=== PATIENT | male | born 1985 | race Two or more races ===

== ENCOUNTER 2017-09-04 17:48 | Emergency (ER) | payer SELFPAY ==
[2017-09-04 20:52] LABS: BILIRUBIN,URINE NEGATIVE (NEG); CLARITY,URINE CLEAR; COLOR,URINE YELLOW; GLUCOSE,URINE NEGATIVE (NEG); NITRITE,URINE NEGATIVE (NEG); PH,URINE 5.5; PROTEIN,URINE 100 mg/dL (NEG-TRACE)
[2017-09-04 20:55] LABS: INFLUENZA A PATIENT NEGATIVE (NEGATIVE); INFLUENZA B PATIENT NEGATIVE (NEGATIVE); OBC FLU VALID
[2017-09-04] MEDS: IV NORMAL SALINE 1000ML BAG 1,000 ML IV (21:00)
[2017-09-04 21:08] LABS: BACTERIA,URINE FEW /HPF (0-FEW); SQUAMOUS EPITHELIAL CELL,UR FEW /LPF; WBC,URINE 0 /HPF (0-4)
[2017-09-04] MEDS: PENICILLIN G BENZATHINE LA 1,200,000 UNIT/2 ML DISP.SYRIN. IM (21:48)
[2017-09-05 11:08] LABS: NEGATIVE OBC STREP NEG; POSITIVE OBC STREP POS
== END 2017-09-04 22:00 | disposition home or self-care (01) ==
LOC: ER 17:48
DX: J02.0 Streptococcal pharyngitis (principal); G40.909 Epilepsy, unspecified, not intractable, without status epilepticus; Z88.8 Allergy status to other drugs, medicaments and biological substances; Z87.01 Personal history of pneumonia (recurrent); Z79.899 Other long term (current) drug therapy
CPT/HCPCS: 71045; 81001; 87804; 87804-59; 87880; 96372; 99285-25; J0561

== ENCOUNTER 2017-09-20 16:03 | Emergency (ER) | payer SELFPAY | END 2017-09-20 16:38 | disposition home or self-care (01) | LOC: ER 16:03 | DX: Z76.0 Encounter for issue of repeat prescription (principal); Z88.8 Allergy status to other drugs, medicaments and biological substances; Z87.01 Personal history of pneumonia (recurrent) | CPT/HCPCS: 99283 ==

== ENCOUNTER 2017-10-06 18:37 | Inpatient (IN) | payer SELFPAY ==
[2017-10-06] MEDS: IV NORMAL SALINE 1000ML BAG 1,000 ML IV ×2 (20:40→22:00)
[2017-10-06 21:11] LABS: INFLUENZA A PATIENT NEGATIVE (NEGATIVE); INFLUENZA B PATIENT NEGATIVE (NEGATIVE); OBC FLU VALID
[2017-10-06 21:27] LABS: ADD MAN DIFF? NO
[2017-10-06 21:31] LABS: BASO % 0 % (0-3); EOS % 1 % (0-3); HEMATOCRIT 31.3 % (39.0-53.0); HEMOGLOBIN 10.3 g/dL (13.0-17.5); LYMPH # 1.3 x10^3/uL (1.0-4.8); LYMPH % 29 % (24-48); MEAN CORPUSCULAR HEMOGLOBIN 25 pg (25-35); MEAN CORPUSCULAR HGB CONC 33 g/dL (31-37); MEAN CORPUSCULAR VOLUME 76 fL (79-100); MONO # 0.5 x10^3/uL (0.0-1.1); MONO % 11 % (0-9); NEUT # 2.7 x10^3uL (1.8-7.7); NEUT % 59 % (31-73); PLATELET COUNT 55 x10^3/uL (140-400); RED BLOOD COUNT 4.14 x10^6/uL (4.30-5.70); RED CELL DISTRIBUTION WIDTH 15.1 % (11.5-14.5); WHITE BLOOD COUNT 4.5 x10^3/uL (4.0-11.0)
[2017-10-06 21:45] LABS: ALBUMIN 3.1 g/dL (3.4-5.0); ALBUMIN/GLOBULIN RATIO 0.9 (1.0-1.7); ALK PHOS 42 U/L (46-116); ALT (SGPT) 7 U/L (16-63); ANION GAP -6 (6-14); AST (SGOT) 10 U/L (15-37); BLOOD UREA NITROGEN 18 mg/dL (8-26); BUN/CREATININE RATIO 14 (6-20); CALCIUM 8.1 mg/dL (8.5-10.1); CARBON DIOXIDE 21 mmol/L (21-32); CHLORIDE 104 mmol/L (98-107); CREATININE 1.3 mg/dL (0.7-1.3); GLUCOSE 76 mg/dL (70-99); POTASSIUM 4.1 mmol/L (3.5-5.1); TOTAL BILIRUBIN 0.4 mg/dL (0.2-1.0); TOTAL PROTEIN 6.4 g/dL (6.4-8.2)
[2017-10-06 21:50] LABS: SODIUM 119 mmol/L (136-145)
[2017-10-06 21:58] LABS: ANISOCYTOSIS SLIGHT; OVALOCYTES FEW; PLT ESTIMATE DECREASED (ADEQUATE)
[2017-10-06] MEDS ORDERED: ACETAMINOPHEN 325 MG TABLET. PO (22:15)
[2017-10-06 22:17] LABS: MAGNESIUM 1.7 mg/dL (1.8-2.4)
[2017-10-06 22:57] LABS: BILIRUBIN,URINE NEGATIVE (NEG); CLARITY,URINE CLEAR; COLOR,URINE YELLOW; GLUCOSE,URINE NEGATIVE (NEG); NITRITE,URINE NEGATIVE (NEG); PROTEIN,URINE 30 mg/dL (NEG-TRACE)
[2017-10-06 23:09] LABS: BACTERIA,URINE 0 /HPF (0-FEW); HYALINE CASTS, URINE FEW /HPF; SQUAMOUS EPITHELIAL CELL,UR OCC /LPF
[2017-10-07] MEDS: IV NORMAL SALINE 1000ML BAG 1,000 ML IV ×4 (01:00→23:45)
[2017-10-07] MEDS: TEMAZEPAM 15 MG CAPSULE PO (01:13)
[2017-10-07] MEDS: levETIRAcetam 500 MG TABLET PO ×2 (01:13→09:00)
[2017-10-07] MEDS: LORazepam 1 MG TABLET PO ×3 (01:14→14:00)
[2017-10-07 06:48] LABS: ALBUMIN 2.8 g/dL (3.4-5.0); ALK PHOS 34 U/L (46-116); ALT (SGPT) 8 U/L (16-63); ANION GAP 13 (6-14); AST (SGOT) 14 U/L (15-37); BLOOD UREA NITROGEN 13 mg/dL (8-26); BUN/CREATININE RATIO 13 (6-20); CALCIUM 7.6 mg/dL (8.5-10.1); CARBON DIOXIDE 21 mmol/L (21-32); CHLORIDE 109 mmol/L (98-107); GFR 86.6; GLUCOSE 115 mg/dL (70-99); POTASSIUM 3.7 mmol/L (3.5-5.1); SODIUM 143 mmol/L (136-145); TOTAL BILIRUBIN 0.2 mg/dL (0.2-1.0); TOTAL PROTEIN 5.6 g/dL (6.4-8.2)
[2017-10-07 10:43] LABS: ADD MAN DIFF? NO
[2017-10-07 10:51] LABS: BASO % 1 % (0-3); EOS % 1 % (0-3); HEMOGLOBIN 11.2 g/dL (13.0-17.5); LYMPH # 1.4 x10^3/uL (1.0-4.8); LYMPH % 34 % (24-48); MEAN CORPUSCULAR HEMOGLOBIN 24 pg (25-35); MEAN CORPUSCULAR HGB CONC 31 g/dL (31-37); MEAN CORPUSCULAR VOLUME 78 fL (79-100); MONO # 0.5 x10^3/uL (0.0-1.1); MONO % 12 % (0-9); NEUT # 2.2 x10^3uL (1.8-7.7); NEUT % 52 % (31-73); PLATELET COUNT 50 x10^3/uL (140-400); RED BLOOD COUNT 4.61 x10^6/uL (4.30-5.70); RED CELL DISTRIBUTION WIDTH 15.8 % (11.5-14.5); WHITE BLOOD COUNT 4.2 x10^3/uL (4.0-11.0)
[2017-10-07] MEDS: CLINDAMYCIN 600MG PREMIX 50 ML IV ×3 (14:00→23:43)
[2017-10-07] MEDS ORDERED: LIDOCAINE WITH 8.4% SOD BICARB 3 ML DISP.SYRIN. (14:46)
[2017-10-07] MEDS: LIDOCAINE WITH 8.4% SOD BICARB 3 ML DISP.SYRIN. INJ (15:00)
[2017-10-07] MEDS: ONDANSETRON PF 4 MG/2 ML VIAL. IV (19:26)
[2017-10-07] MEDS: IV NORMAL SALINE 500ML BAG 500 ML IV (20:00)
[2017-10-07] MEDS: ACETAMINOPHEN 325 MG SUPP.RECT. PR (20:12)
[2017-10-07] MEDS: CETIRIZINE HCL 10 MG TABLET. PO (23:56)
[2017-10-08] MEDS: ALBUTEROL SULFATE 2.5 MG/3 ML NEBU. NEB (00:50)
[2017-10-08] MEDS: IV 1/2 NORMAL SALINE 1,000 ML IV (01:45)
[2017-10-08] MEDS: ACETAMINOPHEN 325 MG SUPP.RECT. PR ×4 (04:42→23:33)
[2017-10-08 05:04] LABS: ADD MAN DIFF? NO
[2017-10-08 05:38] LABS: BASO % 0 % (0-3); EOS % 0 % (0-3); HEMATOCRIT 28.9 % (39.0-53.0); HEMOGLOBIN 9.6 g/dL (13.0-17.5); LYMPH # 0.6 x10^3/uL (1.0-4.8); LYMPH % 10 % (24-48); MEAN CORPUSCULAR HEMOGLOBIN 25 pg (25-35); MEAN CORPUSCULAR HGB CONC 33 g/dL (31-37); MEAN CORPUSCULAR VOLUME 76 fL (79-100); MONO # 0.6 x10^3/uL (0.0-1.1); MONO % 9 % (0-9); NEUT # 5.3 x10^3uL (1.8-7.7); NEUT % 82 % (31-73); RED CELL DISTRIBUTION WIDTH 15.7 % (11.5-14.5); WHITE BLOOD COUNT 6.5 x10^3/uL (4.0-11.0)
[2017-10-08 05:46] LABS: PLATELET COUNT 45 x10^3/uL (140-400)
[2017-10-08 06:00] LABS: ANION GAP 14 (6-14); BLOOD UREA NITROGEN 10 mg/dL (8-26); CALCIUM 7.2 mg/dL (8.5-10.1); CARBON DIOXIDE 19 mmol/L (21-32); CHLORIDE 106 mmol/L (98-107); CREATININE 1.3 mg/dL (0.7-1.3); GLUCOSE 118 mg/dL (70-99); POTASSIUM 3.7 mmol/L (3.5-5.1); SODIUM 139 mmol/L (136-145)
[2017-10-08] MEDS: CLINDAMYCIN 600MG PREMIX 50 ML IV ×3 (06:11→21:12)
[2017-10-08] MEDS: CETIRIZINE HCL 10 MG TABLET. PO (08:14)
[2017-10-08] MEDS: MORPHINE SULFATE 2 MG/ML DISP.SYRIN. IV ×4 (10:32→23:43)
[2017-10-08] MEDS: SCOPOLAMINE 1.5MG PATCH. TD (10:45)
[2017-10-08] MEDS: ATROPINE 1% OPHTH SOLUTION 5ML BOTTLE. SL (11:26)
[2017-10-08 13:19] LABS: URINE OSMOLALITY 471 mOsmol/kg (.)
[2017-10-08] MEDS: SUCRALFATE 1 GM TABLET. PO (21:00)
[2017-10-09 00:33] LABS: LACTIC ACID 1.5 mmol/L (0.4-2.0)
[2017-10-09] MEDS: ACETAMINOPHEN 325 MG SUPP.RECT. PR ×3 (05:11→20:49)
[2017-10-09] MEDS: CLINDAMYCIN 600MG PREMIX 50 ML IV (06:20)
[2017-10-09] MEDS ORDERED: PANTOPRAZOLE 40 MG TABLET.DR. PO (07:30)
[2017-10-09] MEDS: SUCRALFATE 1 GM TABLET. PO ×2 (10:32→20:42)
[2017-10-09] MEDS: CETIRIZINE HCL 10 MG TABLET. PO (10:33)
[2017-10-09] MEDS: PANTOPRAZOLE IV PUSH 40 MG VIAL. IVP (10:42)
[2017-10-09] MEDS ORDERED: CONTRAST GIVEN MC (12:15)
[2017-10-09] MEDS: IOHEXOL 300 MG/ML 100ML VIAL. IV (12:15)
[2017-10-09] MEDS: IOHEXOL 240 MG/ML 50ML VIAL. PO (12:15)
[2017-10-09] MEDS: PIPERACILLIN/TAZOBACTAM 3.375 GM in IV NORMAL SALINE 50ML 50 ML IV ×3 (12:39→22:47)
[2017-10-09] MEDS: VANCOMYCIN 1 GM in IV DEXTROSE 5% 250 ML IV (14:01)
[2017-10-09] MEDS: VANCOMYCIN PER PHARMACY MC (14:57)
[2017-10-09] MEDS: MORPHINE SULFATE 2 MG/ML DISP.SYRIN. IV ×2 (16:15→22:46)
[2017-10-09] MEDS: IV NORMAL SALINE 1000ML BAG 1,000 ML IV (17:43)
[2017-10-09 18:17] LABS: ADD MAN DIFF? NO
[2017-10-09 18:18] LABS: BASO % 0 % (0-3); EOS % 0 % (0-3); HEMATOCRIT 27.7 % (39.0-53.0); LYMPH # 0.4 x10^3/uL (1.0-4.8); LYMPH % 19 % (24-48); MEAN CORPUSCULAR HEMOGLOBIN 25 pg (25-35); MEAN CORPUSCULAR HGB CONC 33 g/dL (31-37); MEAN CORPUSCULAR VOLUME 76 fL (79-100); MONO # 0.1 x10^3/uL (0.0-1.1); MONO % 5 % (0-9); NEUT # 1.7 x10^3uL (1.8-7.7); NEUT % 76 % (31-73); PLATELET COUNT 39 x10^3/uL (140-400); RED BLOOD COUNT 3.66 x10^6/uL (4.30-5.70); RED CELL DISTRIBUTION WIDTH 15.5 % (11.5-14.5); WHITE BLOOD COUNT 2.3 x10^3/uL (4.0-11.0)
[2017-10-09 18:38] LABS: ANION GAP 10 (6-14); BLOOD UREA NITROGEN 15 mg/dL (8-26); CALCIUM 7.1 mg/dL (8.5-10.1); CARBON DIOXIDE 22 mmol/L (21-32); CHLORIDE 109 mmol/L (98-107); CREATININE 1.7 mg/dL (0.7-1.3); GFR 46.9; GLUCOSE 110 mg/dL (70-99); POTASSIUM 3.9 mmol/L (3.5-5.1); SODIUM 141 mmol/L (136-145)
[2017-10-10] MEDS: IV NORMAL SALINE 1000ML BAG 1,000 ML IV ×2 (03:54→12:13)
[2017-10-10] MEDS: ALBUTEROL SULFATE 2.5 MG/3 ML NEBU. NEB ×2 (04:24→12:30)
[2017-10-10] MEDS: PIPERACILLIN/TAZOBACTAM 3.375 GM in IV NORMAL SALINE 50ML 50 ML IV ×3 (05:49→17:08)
[2017-10-10] MEDS: MORPHINE SULFATE 2 MG/ML DISP.SYRIN. IV ×5 (05:51→21:34)
[2017-10-10] MEDS: CETIRIZINE HCL 10 MG TABLET. PO (08:43)
[2017-10-10] MEDS: SUCRALFATE 1 GM TABLET. PO ×2 (08:43→21:31)
[2017-10-10] MEDS: PANTOPRAZOLE IV PUSH 40 MG VIAL. IVP (08:45)
[2017-10-10] MEDS: ONDANSETRON PF 4 MG/2 ML VIAL. IV (08:48)
[2017-10-10 09:01] LABS: ADD MAN DIFF? NO
[2017-10-10 09:09] LABS: BASO % 0 % (0-3); EOS % 0 % (0-3); HEMATOCRIT 27.4 % (39.0-53.0); HEMOGLOBIN 8.8 g/dL (13.0-17.5); LYMPH # 0.4 x10^3/uL (1.0-4.8); LYMPH % 21 % (24-48); MEAN CORPUSCULAR HEMOGLOBIN 25 pg (25-35); MEAN CORPUSCULAR HGB CONC 32 g/dL (31-37); MEAN CORPUSCULAR VOLUME 76 fL (79-100); MONO # 0.1 x10^3/uL (0.0-1.1); MONO % 4 % (0-9); NEUT # 1.6 x10^3uL (1.8-7.7); NEUT % 75 % (31-73); RED BLOOD COUNT 3.58 x10^6/uL (4.30-5.70); RED CELL DISTRIBUTION WIDTH 15.9 % (11.5-14.5); WHITE BLOOD COUNT 2.1 x10^3/uL (4.0-11.0)
[2017-10-10 09:15] LABS: ANION GAP 15 (6-14); BLOOD UREA NITROGEN 15 mg/dL (8-26); CALCIUM 7.3 mg/dL (8.5-10.1); CARBON DIOXIDE 19 mmol/L (21-32); CHLORIDE 113 mmol/L (98-107); CREATININE 1.6 mg/dL (0.7-1.3); GFR 50.3; GLUCOSE 100 mg/dL (70-99); POTASSIUM 3.5 mmol/L (3.5-5.1); SODIUM 147 mmol/L (136-145)
[2017-10-10 09:42] LABS: PLATELET COUNT 37 x10^3/uL (140-400)
[2017-10-10] MEDS: AMINO AC 3%/ELECTROLYTE/GLYCER 1,000 ML IV (12:10)
[2017-10-10] MEDS: VANCOMYCIN PER PHARMACY MC (13:53)
[2017-10-10] MEDS: VANCOMYCIN 750 MG in IV 1/2 NORMAL SALINE 250 ML IV (13:58)
[2017-10-11] MEDS: PIPERACILLIN/TAZOBACTAM 3.375 GM in IV NORMAL SALINE 50ML 50 ML IV ×4 (00:26→17:05)
[2017-10-11] MEDS: AMINO AC 3%/ELECTROLYTE/GLYCER 1,000 ML IV ×2 (00:27→11:37)
[2017-10-11] MEDS: ACETAMINOPHEN 325 MG SUPP.RECT. PR ×3 (00:34→13:53)
[2017-10-11 05:49] LABS: BASO % 1 % (0-3); EOS % 0 % (0-3); HEMATOCRIT 27.9 % (39.0-53.0); LYMPH # 0.6 x10^3/uL (1.0-4.8); LYMPH % 29 % (24-48); MEAN CORPUSCULAR HEMOGLOBIN 24 pg (25-35); MEAN CORPUSCULAR HGB CONC 32 g/dL (31-37); MEAN CORPUSCULAR VOLUME 76 fL (79-100); MONO # 0.1 x10^3/uL (0.0-1.1); MONO % 5 % (0-9); NEUT # 1.5 x10^3uL (1.8-7.7); NEUT % 66 % (31-73); PLATELET COUNT 56 x10^3/uL (140-400); RED BLOOD COUNT 3.68 x10^6/uL (4.30-5.70); RED CELL DISTRIBUTION WIDTH 16.2 % (11.5-14.5); WHITE BLOOD COUNT 2.2 x10^3/uL (4.0-11.0)
[2017-10-11 05:52] LABS: ADD MAN DIFF? YES
[2017-10-11 05:58] LABS: ANION GAP 10 (6-14); BLOOD UREA NITROGEN 17 mg/dL (8-26); CALCIUM 7.8 mg/dL (8.5-10.1); CARBON DIOXIDE 21 mmol/L (21-32); CHLORIDE 114 mmol/L (98-107); CREATININE 1.6 mg/dL (0.7-1.3); GFR 50.3; GLUCOSE 111 mg/dL (70-99); POTASSIUM 4.2 mmol/L (3.5-5.1); SODIUM 145 mmol/L (136-145)
[2017-10-11] MEDS: SUCRALFATE 1 GM TABLET. PO ×2 (06:57→20:32)
[2017-10-11] MEDS: CETIRIZINE HCL 10 MG TABLET. PO (06:57)
[2017-10-11] MEDS: SCOPOLAMINE 1.5MG PATCH. TD (07:07)
[2017-10-11] MEDS: PANTOPRAZOLE IV PUSH 40 MG VIAL. IVP (07:07)
[2017-10-11 10:15] LABS: % BANDS 42 % (0-9); % LYMPHS 27 % (24-48); % MONOS 3 % (0-10); % SEGS 28 % (35-66); PLT ESTIMATE DECREASED (ADEQUATE)
[2017-10-11 10:48] LABS: ANISOCYTOSIS SLIGHT; MICROCYTOSIS SLIGHT
[2017-10-11 10:49] LABS: HYPOCHROMIA SLIGHT; OVALOCYTES FEW; SCHISTOCYTES OCC; TEAR DROP CELLS FEW
[2017-10-11] MEDS: ALBUTEROL SULFATE 2.5 MG/3 ML NEBU. NEB (12:03)
[2017-10-11 12:56] LABS: BASE EXCESS ABG -5 mmol/L (-3-3); HCO3 ABG 19 mmol/L (21-28); PCO2 ABG 33 mmHg (35-46); PH ABG 7.39 (7.35-7.45); PO2 ABG 51 mmHg (85-108); SAT O2 ABG 81 % (92-99)
[2017-10-11 12:59] LABS: FIO2 ABG 21
[2017-10-11 15:27] LABS: VANC TR 8.3 mcg/mL (10.0-20.0)
[2017-10-11] MEDS: MORPHINE SULFATE 2 MG/ML DISP.SYRIN. IV ×3 (15:32→21:35)
[2017-10-11] MEDS: VANCOMYCIN 750 MG in IV 1/2 NORMAL SALINE 250 ML IV (15:33)
[2017-10-11] MEDS: VANCOMYCIN PER PHARMACY MC (15:36)
[2017-10-11] MEDS: IPRATRPIUM/ALBUTEROL 0.5/2.5MG 3 ML NEBU. NEB ×2 (16:09→20:13)
[2017-10-11 20:09] LABS: C DIFF BY PCR Negative (Negative)
[2017-10-12] MEDS: PIPERACILLIN/TAZOBACTAM 3.375 GM in IV NORMAL SALINE 50ML 50 ML IV ×2 (00:11→05:41)
[2017-10-12] MEDS: AMINO AC 3%/ELECTROLYTE/GLYCER 1,000 ML IV ×2 (01:22→15:48)
[2017-10-12] MEDS: MORPHINE SULFATE 2 MG/ML DISP.SYRIN. IV ×3 (01:52→15:26)
[2017-10-12 06:00] LABS: ADD MAN DIFF? NO
[2017-10-12 06:06] LABS: BASO % 0 % (0-3); EOS % 0 % (0-3); HEMATOCRIT 25.5 % (39.0-53.0); HEMOGLOBIN 8.3 g/dL (13.0-17.5); LYMPH # 0.5 x10^3/uL (1.0-4.8); LYMPH % 35 % (24-48); MEAN CORPUSCULAR HEMOGLOBIN 25 pg (25-35); MEAN CORPUSCULAR HGB CONC 33 g/dL (31-37); MEAN CORPUSCULAR VOLUME 75 fL (79-100); MONO # 0.1 x10^3/uL (0.0-1.1); MONO % 7 % (0-9); NEUT # 0.9 x10^3uL (1.8-7.7); NEUT % 58 % (31-73); PLATELET COUNT 48 x10^3/uL (140-400); RED BLOOD COUNT 3.39 x10^6/uL (4.30-5.70); RED CELL DISTRIBUTION WIDTH 15.9 % (11.5-14.5)
[2017-10-12 06:13] LABS: WHITE BLOOD COUNT 1.5 x10^3/uL (4.0-11.0)
[2017-10-12] MEDS: VANCOMYCIN 500 MG in IV NORMAL SALINE 100ML 100 ML IV ×2 (06:19→17:58)
[2017-10-12 06:22] LABS: ANION GAP 5 (6-14); BLOOD UREA NITROGEN 21 mg/dL (8-26); CALCIUM 7.7 mg/dL (8.5-10.1); CARBON DIOXIDE 25 mmol/L (21-32); CHLORIDE 108 mmol/L (98-107); CREATININE 1.5 mg/dL (0.7-1.3); GFR 54.2; GLUCOSE 119 mg/dL (70-99); POTASSIUM 4.2 mmol/L (3.5-5.1); SODIUM 138 mmol/L (136-145)
[2017-10-12] MEDS: VANCOMYCIN PER PHARMACY MC (08:55)
[2017-10-12] MEDS: CEFEPIME HCL 1 GM in IV NORMAL SALINE 50ML 50 ML IV ×3 (09:01→21:31)
[2017-10-12] MEDS: IPRATRPIUM/ALBUTEROL 0.5/2.5MG 3 ML NEBU. NEB ×4 (09:28→20:47)
[2017-10-12] MEDS: OSELTAMIVIR 30 MG CAPSULE PO ×2 (09:29→20:39)
[2017-10-12] MEDS: PANTOPRAZOLE IV PUSH 40 MG VIAL. IVP (09:29)
[2017-10-12] MEDS: CETIRIZINE HCL 10 MG TABLET. PO (09:29)
[2017-10-12] MEDS: SUCRALFATE 1 GM TABLET. PO ×2 (09:29→20:39)
[2017-10-12 14:18] LABS: RETIC COUNT 0.2 % (0.5-2.5)
[2017-10-12 14:58] LABS: THYROID STIM HORMONE (TSH) 0.765 uIU/mL (0.358-3.74)
[2017-10-12] MEDS: TBO-FILGRASTIM 300 MCG/0.5 ML SYRINGE. SQ (15:49)
[2017-10-12] MEDS: MORPHINE SULFATE 4 MG/ML DISP.SYRIN. IV (19:12)
[2017-10-13] MEDS: MORPHINE SULFATE 4 MG/ML DISP.SYRIN. IV ×2 (00:05→02:39)
[2017-10-13] MEDS: AMINO AC 3%/ELECTROLYTE/GLYCER 1,000 ML IV (04:31)
[2017-10-13] MEDS: CEFEPIME HCL 1 GM in IV NORMAL SALINE 50ML 50 ML IV ×3 (05:27→21:49)
[2017-10-13] MEDS: VANCOMYCIN 500 MG in IV NORMAL SALINE 100ML 100 ML IV ×2 (06:00→17:40)
[2017-10-13 06:33] LABS: ANION GAP 10 (6-14); BLOOD UREA NITROGEN 24 mg/dL (8-26); CALCIUM 8.4 mg/dL (8.5-10.1); CARBON DIOXIDE 21 mmol/L (21-32); CHLORIDE 104 mmol/L (98-107); CREATININE 1.1 mg/dL (0.7-1.3); GFR 77.6; GLUCOSE 131 mg/dL (70-99); POTASSIUM 4.3 mmol/L (3.5-5.1); SODIUM 135 mmol/L (136-145)
[2017-10-13 06:39] LABS: INFLUENZA A PATIENT NEGATIVE (NEGATIVE); INFLUENZA B PATIENT NEGATIVE (NEGATIVE); OBC FLU VALID
[2017-10-13 06:41] LABS: BASO % 0 % (0-3); EOS % 0 % (0-3); HEMATOCRIT 27.4 % (39.0-53.0); HEMOGLOBIN 8.9 g/dL (13.0-17.5); LYMPH # 0.8 x10^3/uL (1.0-4.8); LYMPH % 7 % (24-48); MEAN CORPUSCULAR HEMOGLOBIN 25 pg (25-35); MEAN CORPUSCULAR HGB CONC 32 g/dL (31-37); MEAN CORPUSCULAR VOLUME 76 fL (79-100); MONO # 0.3 x10^3/uL (0.0-1.1); MONO % 3 % (0-9); NEUT # 10.8 x10^3uL (1.8-7.7); NEUT % 90 % (31-73); PLATELET COUNT 47 x10^3/uL (140-400); RED BLOOD COUNT 3.63 x10^6/uL (4.30-5.70); RED CELL DISTRIBUTION WIDTH 16.3 % (11.5-14.5)
[2017-10-13 06:44] LABS: ADD MAN DIFF? YES
[2017-10-13] MEDS: CETIRIZINE HCL 10 MG TABLET. PO (07:48)
[2017-10-13] MEDS: SUCRALFATE 1 GM TABLET. PO ×2 (07:48→21:00)
[2017-10-13] MEDS: PANTOPRAZOLE IV PUSH 40 MG VIAL. IVP (07:48)
[2017-10-13] MEDS: OSELTAMIVIR 30 MG CAPSULE PO ×2 (07:48→21:00)
[2017-10-13] MEDS: IPRATRPIUM/ALBUTEROL 0.5/2.5MG 3 ML NEBU. NEB ×4 (08:52→19:22)
[2017-10-13] MEDS: VANCOMYCIN PER PHARMACY MC (09:44)
[2017-10-13 12:15] LABS: HCV ANTIBODY <0.1 s/co ratio (0.0-0.9); HEP A IGM ABDY Negative (Negative); HEP B SURFACE AG Negative (Negative)
[2017-10-13 12:27] LABS: % BANDS 10 % (0-9); % LYMPHS 8 % (24-48); % MONOS 3 % (0-10); % SEGS 79 % (35-66)
[2017-10-13 12:28] LABS: ANISOCYTOSIS SLIGHT; OVALOCYTES PRESENT; PLT ESTIMATE DECREASED (ADEQUATE); POIKILOCYTOSIS SLIGHT
[2017-10-13] MEDS: TPN PER PHARMACY MC (13:07)
[2017-10-13] MEDS: TOTAL PARENTERAL NUTRITION IV (21:48)
[2017-10-13] MEDS: DEXTROSE 70% IV (21:48)
[2017-10-13] MEDS: [UNRECOGNIZED DRUG - OTHER] IV (21:48)
[2017-10-13] MEDS: AMINO ACIDS IV (21:48)
[2017-10-13 23:11] LABS: MRSA BY PCR Negative (Negative)
[2017-10-14] MEDS: CEFEPIME HCL 1 GM in IV NORMAL SALINE 50ML 50 ML IV ×3 (05:35→23:19)
[2017-10-14] MEDS: VANCOMYCIN 500 MG in IV NORMAL SALINE 100ML 100 ML IV (05:36)
[2017-10-14 05:43] LABS: ADD MAN DIFF? NO
[2017-10-14 05:47] LABS: BASO % 0 % (0-3); EOS % 0 % (0-3); HEMATOCRIT 30.8 % (39.0-53.0); HEMOGLOBIN 9.9 g/dL (13.0-17.5); LYMPH # 0.7 x10^3/uL (1.0-4.8); LYMPH % 4 % (24-48); MEAN CORPUSCULAR HEMOGLOBIN 24 pg (25-35); MEAN CORPUSCULAR HGB CONC 32 g/dL (31-37); MEAN CORPUSCULAR VOLUME 75 fL (79-100); MONO # 0.5 x10^3/uL (0.0-1.1); MONO % 3 % (0-9); NEUT # 16.9 x10^3uL (1.8-7.7); NEUT % 93 % (31-73); PLATELET COUNT 76 x10^3/uL (140-400); RED BLOOD COUNT 4.14 x10^6/uL (4.30-5.70); RED CELL DISTRIBUTION WIDTH 16.5 % (11.5-14.5)
[2017-10-14 06:14] LABS: ALBUMIN 2.4 g/dL (3.4-5.0); ALBUMIN/GLOBULIN RATIO 0.5 (1.0-1.7); ALK PHOS 103 U/L (46-116); ALT (SGPT) 34 U/L (16-63); ANION GAP 14 (6-14); AST (SGOT) 43 U/L (15-37); BLOOD UREA NITROGEN 21 mg/dL (8-26); BUN/CREATININE RATIO 18 (6-20); CALCIUM 9.2 mg/dL (8.5-10.1); CARBON DIOXIDE 18 mmol/L (21-32); CHLORIDE 102 mmol/L (98-107); CREATININE 1.2 mg/dL (0.7-1.3); GFR 70.2; GLUCOSE 258 mg/dL (70-99); MAGNESIUM 2.2 mg/dL (1.8-2.4); PHOSPHORUS 3.3 mg/dL (2.6-4.7); POTASSIUM 4.2 mmol/L (3.5-5.1); SODIUM 134 mmol/L (136-145); TOTAL BILIRUBIN 0.2 mg/dL (0.2-1.0); TOTAL PROTEIN 6.8 g/dL (6.4-8.2); TRIGLYCERIDES 234 mg/dL (0-150)
[2017-10-14 06:16] LABS: VANC TR 15.6 mcg/mL (10.0-20.0)
[2017-10-14] MEDS: VANCOMYCIN PER PHARMACY MC (06:29)
[2017-10-14] MEDS: SUCRALFATE 1 GM TABLET. PO ×2 (08:08→21:19)
[2017-10-14] MEDS: CETIRIZINE HCL 10 MG TABLET. PO (08:09)
[2017-10-14] MEDS: OSELTAMIVIR 30 MG CAPSULE PO (08:09)
[2017-10-14] MEDS: SCOPOLAMINE 1.5MG PATCH. TD (08:15)
[2017-10-14] MEDS: PANTOPRAZOLE IV PUSH 40 MG VIAL. IVP (08:15)
[2017-10-14] MEDS: IPRATRPIUM/ALBUTEROL 0.5/2.5MG 3 ML NEBU. NEB ×4 (08:38→21:23)
[2017-10-14] MEDS: TPN PER PHARMACY MC (12:52)
[2017-10-14] MEDS: ONDANSETRON PF 4 MG/2 ML VIAL. IV (16:31)
[2017-10-14] MEDS ORDERED: IPRATRPIUM/ALBUTEROL 0.5/2.5MG 3 ML NEBU. (19:14)
[2017-10-14] MEDS: OSELTAMIVIR 30 MG/5 ML ORAL.SUSP. PO (21:26)
[2017-10-14] MEDS: [UNRECOGNIZED DRUG - OTHER] IV (23:19)
[2017-10-14] MEDS: TOTAL PARENTERAL NUTRITION IV (23:19)
[2017-10-14] MEDS: AMINO ACIDS IV (23:19)
[2017-10-14] MEDS: DEXTROSE 70% IV (23:19)
[2017-10-15 04:31] LABS: ADD MAN DIFF? NO; BASO % 0 % (0-3); EOS % 0 % (0-3); HEMATOCRIT 30.9 % (39.0-53.0); HEMOGLOBIN 9.9 g/dL (13.0-17.5); LYMPH # 1.3 x10^3/uL (1.0-4.8); LYMPH % 7 % (24-48); MEAN CORPUSCULAR HEMOGLOBIN 24 pg (25-35); MEAN CORPUSCULAR HGB CONC 32 g/dL (31-37); MEAN CORPUSCULAR VOLUME 76 fL (79-100); MONO # 0.7 x10^3/uL (0.0-1.1); MONO % 4 % (0-9); NEUT # 15.1 x10^3uL (1.8-7.7); NEUT % 88 % (31-73); PLATELET COUNT 81 x10^3/uL (140-400); RED BLOOD COUNT 4.07 x10^6/uL (4.30-5.70); RED CELL DISTRIBUTION WIDTH 16.6 % (11.5-14.5); WHITE BLOOD COUNT 17.2 x10^3/uL (4.0-11.0)
[2017-10-15 04:52] LABS: ALBUMIN 2.6 g/dL (3.4-5.0); ALBUMIN/GLOBULIN RATIO 0.6 (1.0-1.7); ALK PHOS 112 U/L (46-116); ALT (SGPT) 47 U/L (16-63); ANION GAP 15 (6-14); AST (SGOT) 51 U/L (15-37); BLOOD UREA NITROGEN 22 mg/dL (8-26); BUN/CREATININE RATIO 16 (6-20); CALCIUM 9.7 mg/dL (8.5-10.1); CARBON DIOXIDE 15 mmol/L (21-32); CHLORIDE 110 mmol/L (98-107); CREATININE 1.4 mg/dL (0.7-1.3); GFR 58.7; GLUCOSE 167 mg/dL (70-99); MAGNESIUM 2.4 mg/dL (1.8-2.4); PHOSPHORUS 4.5 mg/dL (2.6-4.7); POTASSIUM 4.7 mmol/L (3.5-5.1); SODIUM 140 mmol/L (136-145); TOTAL BILIRUBIN 0.3 mg/dL (0.2-1.0); TOTAL PROTEIN 7.3 g/dL (6.4-8.2)
[2017-10-15] MEDS: CEFEPIME HCL 1 GM in IV NORMAL SALINE 50ML 50 ML IV (05:42)
[2017-10-15] MEDS: IPRATRPIUM/ALBUTEROL 0.5/2.5MG 3 ML NEBU. NEB ×2 (08:00→11:56)
[2017-10-15] MEDS: PANTOPRAZOLE IV PUSH 40 MG VIAL. IVP (08:14)
[2017-10-15] MEDS: SUCRALFATE 1 GM TABLET. PO (08:41)
[2017-10-15] MEDS: CETIRIZINE HCL 10 MG TABLET. PO (08:41)
[2017-10-15 08:51] LABS: PATHOLOGY REVIEW SEE SEPARATE REPORT
[2017-10-15] MEDS: OSELTAMIVIR 30 MG/5 ML ORAL.SUSP. PO (09:00)
[2017-10-15] MEDS: ALTEPLASE 2 MG VIAL INT CAT (10:00)
== END 2017-10-15 13:04 | disposition home or self-care (01) | DRG 871 ==
LOC: 1 WEST ICU 10-11 15:17 → 5 NORTH 10-15 01:00 → ER 18:37 → 6 SOUTH 21:56
PROC: 02HV33Z Insertion of Infusion Device into Superior Vena Cava, Percutaneous Approach (ICD-10-PCS; principal; 2017-10-07)
PROC: B5181ZA Fluoroscopy of Superior Vena Cava using Low Osmolar Contrast, Guidance (ICD-10-PCS; 2017-10-07)
PROC: B548ZZA Ultrasonography of Superior Vena Cava, Guidance (ICD-10-PCS; 2017-10-07)
DX: A41.9 Sepsis, unspecified organism (principal); J69.0 Pneumonitis due to inhalation of food and vomit; J96.01 Acute respiratory failure with hypoxia; G93.40 Encephalopathy, unspecified; D61.818 Other pancytopenia; D70.9 Neutropenia, unspecified; K56.7 Ileus, unspecified; E87.1 Hypo-osmolality and hyponatremia; F73 Profound intellectual disabilities; N17.9 Acute kidney failure, unspecified; D50.9 Iron deficiency anemia, unspecified; G40.909 Epilepsy, unspecified, not intractable, without status epilepticus; G47.00 Insomnia, unspecified; G80.9 Cerebral palsy, unspecified; J44.9 Chronic obstructive pulmonary disease, unspecified; K21.9 Gastro-esophageal reflux disease without esophagitis; K44.9 Diaphragmatic hernia without obstruction or gangrene; N18.9 Chronic kidney disease, unspecified; Q02 Microcephaly; Q05.9 Spina bifida, unspecified; R13.10 Dysphagia, unspecified; Z51.5 Encounter for palliative care; Z66 Do not resuscitate; Z79.899 Other long term (current) drug therapy; Z82.49 Family history of ischemic heart disease and other diseases of the circulatory system; Z87.01 Personal history of pneumonia (recurrent); Z87.11 Personal history of peptic ulcer disease; Z93.1 Gastrostomy status; Z88.8 Allergy status to other drugs, medicaments and biological substances
CPT/HCPCS: 31720; 36415; 36569; 36600; 71045; 71260; 74177; 76937; 77001; 80048; 80053; 80074; 80202; 81001; 82805; 83605; 83735; 83930; 83935; 84100; 84443; 84478; 85007; 85025; 85045; 87040; 87086; 87324; 87641; 87804; 87804-59; 92610-GN; 93005; 94640; 96360; 99285; 99285-25; C1751; C1892; C9113; J0610; J0692; J1953; J1956; J2060; J2270; J2405; J2543; J3370; J3475; J3490; J7030; J7040; J7613; J7620